=== PATIENT | male | born 1980 | race Caucasian/White ===

== ENCOUNTER 2022-06-28 07:37 | Outpatient (CLI) | payer OTHER, SELFPAY ==
[2022-06-28 08:10] LABS: Alanine Aminotransferase 33 U/L (6-50); Albumin Level 4.5 g/dL (3.5-5.1); Alkaline Phosphatase 56 U/L (38-126); Anion Gap 14 mmol/L (8-16); Aspartate Amino Transferase 36 U/L (17-59); Bilirubin,Total 0.4 mg/dL (0.2-1.3); Blood Urea Nitrogen 17 mg/dL (9-20); Carbon Dioxide 25 mmol/L (22-30); Chloride 102 mmol/L (98-107); Cholesterol 247 mg/dL (0-200); Estimated Glomerular Filt Rate > 60; Glucose 108 mg/dL (65-110); HDL Direct 78 mg/dL; Potassium 4.2 mmol/L (3.4-5.0); Sodium 141 mmol/L (137-145); Triglycerides 89 mg/dL (<150)
[2022-06-28 08:14] LABS: Hemoglobin A1C 5.3 % (<5.7)
[2022-06-28 08:21] LABS: LDL Cholesterol Direct 119 mg/dL
== END 2022-06-28 07:38 | disposition home or self-care (01) ==
PROVIDERS: PCP Internal Medicine; Visit Provider Nurse Practitioner
DX: Z13.6 Encounter for screening for cardiovascular disorders (principal); Z13.29 Encounter for screening for other suspected endocrine disorder; Z13.220 Encounter for screening for lipoid disorders; Z13.1 Encounter for screening for diabetes mellitus
CPT/HCPCS: 36415; 80053; 80061; 83036; 84443

== ENCOUNTER 2022-11-29 12:32 | Outpatient (CLI) | payer OTHER, SELFPAY ==
--- NOTE | 2022-11-30 10:02 | WPDNEUROLOGY ---
Neurology EEG Report General Information Date of Study: 11/29/22 TEST eeg DIAGNOSIS unspecified convulsion CONDITION OF RECORDING awake drowsy and sleep. EEG NUMBER [id number] CLINICAL HISTORY patient reports he has had 2 episodes of waking up feeling weak and tired and blood in the mouth from biting his tongue EEG DESCRIPTION basic resting occipital frequency consists of low-voltage 8 to 10 hertz per 2nd alpha admixed with low-voltage 15 to 18 hertz per 2nd beta. Low-voltage beta activity seen diffusely during drowsiness admixed with waxing and waning posterior alpha rhythm. Bilateral symmetrical sleep activity seen during sleep with symmetrical sleep spindles. Single episode of medium to high voltage dysrhythmic she sharp and slow wave activity seen lasting for about 5seconds during sleep. Nonfocal nonlateralizing. IMPRESSION Abnormal record due to the presence of single episode of dysrhythmic activity during sleep lasting for a very short duration this abnormality is not highly diagnostic of seizure but could be compatible with clinical correlation recommended
== END 2022-11-29 12:33 | disposition home or self-care (01) ==
LOC: ANHNEURO 12:33
PROVIDERS: PCP Internal Medicine; Visit Provider Internal Medicine
DX: R56.9 Unspecified convulsions (principal)
CPT/HCPCS: 95816

== ENCOUNTER 2023-09-26 12:45 | Emergency (ER) | payer OTHER, SELFPAY ==
[2023-09-26 12:52] VITALS: BP 180/106; PULSE 101; RESP 16; TEMP 36.3; O2SAT 100
[2023-09-26 12:56] VITALS: BP 180/106; PULSE 101; RESP 16; TEMP 36.3; O2SAT 100
--- NOTE | 2023-09-26 13:09 | ED.URI ---
HPI - URI/Sore Throat General Chief Complaint: Upper Respiratory Infection Stated Complaint: Sinus Infection Symptoms Time Seen by Provider: 09/26/23 13:09 Source: patient and RN notes reviewed Mode of arrival: ambulatory Limitations: no limitations History of Present Illness HPI Narrative: 42-year-old male presents concern for sinus pain, congestion, bilateral ear pain and pressure. Reports he had been sick for about a week and these new symptoms have developed. Reports popping sensation in his ears and decreased hearing in the right ear. He has been taking [id number] medications without relief MD elicited complaint: sinus pain and other (Ear pain) Related Data Allergies Allergy/AdvReac Type Severity Reaction Status Date / Time Penicillins Allergy Mild Rash Verified 09/26/23 12:55 Sulfa (Sulfonamide Allergy Mild Rash Verified 09/26/23 12:55 Antibiotics) Review of Systems Review of Systems: CONSTITUTIONAL: Reports malaise, intermittent fever. EYES: Denies visual changes, redness, or discharge. ENT: Reports rhinorrhea, congestion, sinus pain, otalgia CARDIOVASCULAR: Denies chest pain, palpitations, or edema. RESPIRATORY: Reports cough. Denies dyspnea. GASTROINTESTINAL: Denies abdominal pain, nausea, vomiting, diarrhea SKIN: Denies rash or itching. MUSCULOSKELETAL: Denies myalgia. NEUROLOGIC: Denies headache. All systems reviewed & are unremarkable except as noted in HPI and below PMFSH Past Medical History Medical History Anxiety Chronic ear infection Depression with anxiety Migraines Surgical History Surgical History Hx of tooth extraction September 2021 Hx of tympanostomy tubes Family History Family History Father Throat cancer Diabetes mellitus Mother History of fibromyalgia Grandparent Parkinson disease Social History Social History Smoking packs per day: 1 Smoking cigarettes per day: 20.0 Years smoked: 10 Smoking pack-years: 10.00 Smoking status: Former smoker (patient still does smoke marijuana) Tobacco type: cigarettes Smoking end date: 08/14/12 Alcohol intake: current Drinks per week: 15 Alcohol use details: Beer Substance use: current Substance use type: marijuana Lack of Transportation: No Lack of Food: Never True Current Housing: Decline to Answer Concerned About Future Housing: No Difficulty Paying Gas/Electric Bills: Decline to Answer Difficulty Paying for Meds: Decline to Answer Currently Unemployed: YES Education: High School Diploma/GED Difficulty w/ Childcare or Family Care: No Living arrangements: with family Occupation/Education: unemployed Gender identity (if verbalized by the patient): Male Comments At time of signature, agree with nursing past medical, surgical, social and family history. There is no relevant family history pertinent to the presenting complaint Exam Narrative: GENERAL: Well-appearing, well-nourished, and in no acute distress. HEAD: Normocephalic EYES: PERRLA, conjunctivae clear ENT: Nares clear, turbinates edematous and erythematous, clear discharge. Mucous membranes moist. TM pearly zamora with dull light reflex bilaterally; no tragal tenderness. Oropharynx not erythematous without lesions. Tonsils not enlarged and without exudate, no drooling, no hoarseness, no trismus, uvula midline. NECK: Supple. No lymphadenopathy CHEST: Clear to auscultation, breath sounds equal. No wheezing, rhonchi, rales, or stridor. No respiratory distress, speaks in full sentences. HEART: Regular rate and rhythm. No murmur heard. SKIN: Warm, dry, no rash. NEURO: Alert and oriented x3. PSYCH: Normal mood and affect Course Course Emergency Course: Patient is aware of diagnosis, unders
== END 2023-09-26 13:18 | disposition home or self-care (01) ==
PROVIDERS: Emergency Provider Nurse Practitioner; PCP Nurse Practitioner
DX: H66.90 Otitis media, unspecified, unspecified ear (principal); Z87.891 Personal history of nicotine dependence
CPT/HCPCS: 99213; G0463

== ENCOUNTER 2024-05-14 14:41 | Emergency (ER) | payer OTHER, SELFPAY ==
--- NOTE | 2024-05-14 14:42 | ED.BACK ---
HPI - Back Pain/Injury General Chief Complaint: Back Pain/Injury Stated Complaint: BACK PAIN Time Seen by Provider: 05/14/24 14:42 Source: patient Mode of arrival: ambulatory Limitations: no limitations History of Present Illness HPI Narrative: Yolanda a 43-year-old male patient presenting to the clinic today with complaints left-sided thoracic back pain that just started this morning. He denies any injury. He reports he went to work today and was unable to lift without significant pain so his boss sent him home. He is needing a work note. Rates his pain currently a 6/10. Pain is worse with movement. No known injury. He denies any saddle anesthesia or loss of bowel or bladder. He denies any urinary symptoms. Related Data Home Medications Medication Instructions Recorded Confirmed fluticasone propionate 50 1 spray intranasal DAILY 10/17/23 mcg/actuation nasal spray,suspension (Flonase Allergy Relief) Allergies Allergy/AdvReac Type Severity Reaction Status Date / Time Penicillins Allergy Mild Rash Verified 10/17/23 11:15 Sulfa (Sulfonamide Allergy Mild Rash Verified 10/17/23 11:15 Antibiotics) Review of Systems Review of Systems: Pertinent positives per HPI. Patient denies any fever, chills, rash, headache, visual changes, dizziness, cough, runny nose, sore throat, shortness of breath, chest pain, palpitations, nausea, vomiting, diarrhea, constipation, abdominal pain, or any urinary issues. [facility] Past Medical History Medical History Anxiety Chronic ear infection Depression with anxiety Migraines Surgical History Surgical History Hx of tooth extraction September 2021 Hx of tympanostomy tubes Family History Family History Father Throat cancer Diabetes mellitus Mother History of fibromyalgia Grandparent Parkinson disease Social History Social History Smoking packs per day: 1 Smoking cigarettes per day: 20.0 Years smoked: 10 Smoking pack-years: 10.00 Smoking status: Former smoker (patient still does smoke marijuana) Tobacco type: cigarettes Smoking end date: 08/14/12 Alcohol intake: current Drinks per week: 12 Alcohol use details: Beer Substance use: current Substance use type: marijuana Do You Feel Safe in your Home?: Yes Lack of Transportation: No Lack of Food: Never True Current Housing: Decline to Answer Concerned About Future Housing: No Difficulty Paying Gas/Electric Bills: No Difficulty Paying for Meds: No Currently Unemployed: YES Education: High School Diploma/GED Difficulty w/ Childcare or Family Care: No Living arrangements: with family Occupation/Education: unemployed Gender identity (if verbalized by the patient): Male Comments At the time of my signature, I reviewed and agree with the nursing past medical, surgical, social, and family history. There is no relevant family history pertinent to the patient complaint. Exam Narrative: General: Well-developed, well nourished, in no apparent distress Head: Normocephalic, atraumatic. Cardio: Regular rate and rhythm, s1 and s2 normal, no murmur appreciated. Resp: Clear to auscultation bilaterally, no rhonchi, rales, wheezing or rubs. Musculoskeletal: No deformity, non-tender to palpation, pain over the left mid thoracic paraspinous musculature with raising his arms against resistance as well as moving his arms and twisting the back, grossly normal range of motion, muscle strength strong and equal in BLE. SLT negative, patellar reflexes 2/4 bilaterally, negative foot drop, normal gait and station Course Course Emergency Course: Portions of this record may have been created with voice recognition software. Level of Care: Expres
[2024-05-14 14:49] VITALS: BP 151/89; PULSE 81; RESP 16; TEMP 36.8; O2SAT 100
== END 2024-05-14 14:59 | disposition home or self-care (01) ==
PROVIDERS: Emergency Provider Nurse Practitioner Family; PCP Nurse Practitioner
DX: M54.6 Pain in thoracic spine (principal); Z87.891 Personal history of nicotine dependence; F12.90 Cannabis use, unspecified, uncomplicated
CPT/HCPCS: 99213; G0463

== ENCOUNTER 2025-02-18 11:38 | Emergency (ER) | payer BC, OTHER, SELFPAY ==
--- NOTE | 2025-02-18 11:40 | ED.EYEPROB ---
HPI - Eye Problem General Chief complaint: Eye Problems Stated complaint: EYE IRRITATION/REDNESS Time Seen by Provider: 02/18/25 11:40 Source: patient Mode of arrival: ambulatory Limitations: no limitations History of Present Illness HPI Narrative: Stephen is a 44-year-old male patient presenting to the clinic today with complaints of left eyelid irritation and redness x2 days. He reports he has been having some crusting and drainage coming from the left eye as well. Has applied warm compress to help alleviate crusting and pain. No fevers or chills. Denies any visual changes. No known foreign body or eye injury. Feels like there may be a FB in his left upper eyelid Related Data Home Medications ?Medication ?Instructions ?Recorded ?Confirmed ?Last Taken ?Type fluticasone propionate 50 1 spray intranasal DAILY 10/17/23 Unknown History mcg/actuation nasal spray,suspension (Flonase Allergy Relief) Allergies Allergy/AdvReac Type Severity Reaction Status Date / Time Penicillins Allergy Mild Rash Verified 02/18/25 11:45 Sulfa (Sulfonamide Allergy Mild Rash Verified 02/18/25 11:45 Antibiotics) Review of Systems Review of Systems: Pertinent positives per HPI. Patient denies any fever, chills, rash, headache, visual changes, dizziness, cough, runny nose, sore throat, shortness of breath, chest pain, palpitations, nausea, vomiting, diarrhea, constipation, abdominal pain, or any urinary issues. [facility] Past Medical History Medical History Migraines Depression with anxiety Chronic ear infection Anxiety Surgical History Surgical History Hx of tympanostomy tubes Hx of tooth extraction September 2021 Family History Family History Father Throat cancer Diabetes mellitus Mother History of fibromyalgia Grandparent Parkinson disease Social History Social History Smoking packs per day: 1 Smoking cigarettes per day: 20.0 Years smoked: 10 Smoking pack-years: 10.00 Smoking status: Former smoker (patient still does smoke marijuana) Tobacco type: cigarettes Smoking end date: 08/14/12 Alcohol intake: current Drinks per week: 12 Alcohol use details: Beer Substance use: current Substance use type: marijuana Do You Feel Safe in your Home?: Yes Lack of Transportation: No Lack of Food: Never True Current Housing: Decline to Answer Concerned About Future Housing: No Difficulty Paying Gas/Electric Bills: No Difficulty Paying for Meds: No Currently Unemployed: No Education: High School Diploma/GED Difficulty w/ Childcare or Family Care: No Living arrangements: with family Occupation/Education: unemployed Gender identity (if verbalized by the patient): Male Comments At the time of my signature, I reviewed and agree with the nursing past medical, surgical, social, and family history. There is no relevant family history pertinent to the patient complaint. Exam Narrative: General: Well-developed, well nourished, in no apparent distress Head: Normocephalic, atraumatic Eyes: Pupils equally round and reactive to light bilaterally, EOM intact, right sclera and conjunctive clear, no discharge, lids normal, left sclera and conjunctiva mildly injected with yellow crusting in the left lateral corner, redness and swelling to the left upper lateral eyelid with tenderness palpation with visualized internal stye Ears: TMs intact and clear, ear canals clear, no drainage, grossly hearing normal. Nose: Nares patent, no discharge, no inflammation, no sinus tenderness. Mouth: Oropharynx without lesions or masses, good dentition, MMM. Neck: Supple, trachea midline, no enlargement of anterior or posterior cervical nodes, no thyroid masses or goiter palpable. Cardio: Regular rate and rhythm, s1 and s2 normal, no murmur appreciated. Resp: Clear to auscultation bilaterally anteriorly and posteriorly, no rhonchi, rales, wheezing or rubs Course Course Emergency Course: Portions of this record may have been created with voice recognition software. Level of Care: Express Care Visit Vital Signs Vital signs: Vital Signs Temperature 37.2 C 02/18/25 11:50 Pulse Rate 99 02/18/25 11:50 Respiratory Rate 16 02/18/25 11:50 Blood Pressure 160/105 H 02/18/25 11:50 Pulse Oximetry 98 02/18/25 11:50 Temperature 37.2 C 02/18/25 11:50 Pulse Rate 99 02/18/25 11:50 Respiratory Rate 16 02/18/25 11:50 Blood Pressure 160/105 H 02/18/25 11:50 Pulse Oximetry 98 02/18/25 11:50 Vital signs reviewed MDM - Eye Problem MDM Narrative Medical decision making narrative: At the time of visit patient is resting comfortably on the exam table. Patient appears to be nontoxic. Plan: I suspect patient has an internal stye to the left lateral upper eyelid. Prescription for tobramycin eyedrops was sent to the pharmacy. Supportive measures were discussed with the patient and they voiced understanding discharge instructions and agrees to treatment plan. Return precautions reviewed Differential Diagnosis Differential diagnosis: Likely corneal abrasion, conjunctivitis, acute iritis, hyphema, periorbital cellulitis, subconjunctival hemorrhage, glaucoma, corneal ulcer and ruptured globe Discharge Plan Discharge Clinical Impression: Stye Qualifiers: Laterality: left Eyelid: upper Qualified Code(s): H00.014 - Hordeolum externum left upper eyelid Patient Disposition: Home Condition: Stable Instructions: Antibiotic Form, Stye (ED) Additional Instructions: Conjunctivitis is considered contagious for 24 hours while on the antibiotic. Practice good hand washing techniques Avoid touching eyes Instill eyedrops as prescribed-tobramycin eyedrops May use warm moist washcloth to help remove eye discharge and warm compresses 4-6 times per day If eyes are matted shut-do not pry eyes open-use a warm moist cloth to loosen matting and wipe matter away from eye May take Tylenol/Motrin as needed for pain or fever May take Benadryl as needed for itching Follow-up with your PCP in 3-5 days if symptoms persist or sooner if they worsen Go to the emergency room if you develop any fever that is not controlled by Tylenol or Motrin, loss of vision, eye pain, increase eye swelling,visual changes, headache, confusion, lethargy, weakness, chest pain, or shortness of breath. Patient Language: Kazakh Prescriptions: New tobramycin 0.3 % drops 1 drp LEFT EYE Q4H 7 Days Qty: 5 0RF No Action levetiracetam 750 mg tablet extended release 24 hr 1,500 mg PO DAILY Qty: 180 4RF fluticasone propionate [Flonase Allergy Relief] 50 mcg/actuation spray,suspension 1 spray intranasal DAILY Rx Instructions: administer into each nostril sumatriptan succinate [Imitrex] 100 mg tablet 100 mg PO ONCE PRN (Reason: migraine headache) Qty: 10 3RF Follow-up/Referrals: Byron Weems APRN [Primary Care Provider] - Stand Alone Forms: Work/School Release IP Time of Disposition: 11:54 Quality NIHSS Nursing Documentation ED NIHSS nursing documentation: reviewed/agree
[2025-02-18 11:50] VITALS: BP 160/105; PULSE 99; RESP 16; TEMP 37.2; O2SAT 98
== END 2025-02-18 11:58 | disposition home or self-care (01) ==
PROVIDERS: Emergency Provider Nurse Practitioner Family; PCP Nurse Practitioner
DX: H00.014 Hordeolum externum left upper eyelid (principal); Z87.891 Personal history of nicotine dependence; F12.90 Cannabis use, unspecified, uncomplicated
CPT/HCPCS: 99213; G0463